=== PATIENT | female | born 1990 | race Caucasian/White ===

== ENCOUNTER 2016-07-14 13:55 | Emergency (ER) | payer MEDICAID ==
[~2016-07-14] VITALS: Ht 166.4 cm; Wt 78.0 kg
[~2016-07-14 13:55] MED LIST: CEFU250T PO; DOCU-143 PO; HYDR-707 PO; IBUP-1780 PO; IRON PO; METR500T PO; OMEP20CA6 PO; OSLT75C PO; OXYC-202 PO; PNV91TAB3 PO
[2016-07-14] MEDS ORDERED: KETOROLAC 60 MG/2 ML VIAL IM ONE (14:30)
--- NOTE | 2016-07-14 14:42 | ED Upper Extremity ---
General Chief Complaint: Upper Extremity Stated Complaint: RIGHT UPPER JOINT EXTREMITY PAIN Nursing Triage Note: to ER with friend with reports of right shoulder pain when she raises her arm above her head for the past year. Patient reports no acute changes. Nursing Sepsis Screen: No Definite Risk Source: patient Exam Limitations: no limitations History of Present Illness Time seen by provider: 14:38 Initial Comments This 25-year-old white female presents with a one-year history of intermittent right shoulder pain. Patient's pain is made worse with abduction. The patient denies remote or recent trauma to the area. Patient denies associated paresthesias or weakness of the right upper extremity. She denies other joint pain. Past medical history is essentially noncontributory. The patient states that she has tried Tylenol and ibuprofen without significant improvement. The patient's pain is sharp in nature, typically moderate in severity, and can occur at any time. The pain is exacerbated by movement particularly abduction. Allergies and Home Medications Allergies Coded Allergies: No Known Drug Allergies (Unverified , 12/18/08) Home Medications Docusate Sodium 100 Mg Capsule, 100 MG PO BID, #60 Prescribed by: DOMINGO CALDERON on 11/26/15 1559 Ibuprofen 800 Mg Tablet, 800 MG PO Q6H PRN for PAIN, #60 Prescribed by: DOMINGO CALDERON on 11/26/15 1559 Oxycodone HCl/Acetaminophen 1 Each Tablet, 1-2 TAB PO Q4H PRN for PAIN, #60 Prescribed by: DOMINGO CALDERON on 11/26/15 1559 Pnv95/Ferrous Fumarate/FA 1 Each Tablet, 1 EACH PO DAILY, (Reported) Constitutional: No chills, No fever EENTM: No eye pain Respiratory: No cough Cardiovascular: No chest pain Gastrointestinal: No abdominal pain, No diarrhea, No nausea, No vomiting Genitourinary: No decreased output, No dysuria, No frequency Musculoskeletal: see HPI, No back pain, No gout, joint pain (right shoulder), No joint swelling Skin: No change in color, No rash Psychiatric/Neurological: No Symptoms Reported Past Iwmnway-Ajvtti-Llodcb Hx Patient Social History Alcohol Use: Denies Use Recreational Drug Use: No (SMOKED POT YEAR AGO) Smoking Status: Former Smoker Type Used: Cigarettes 2nd Hand Smoke Exposure: Yes Recent Foreign Travel: No Contact w/Someone Who Travel: No Recent Infectious Disease Expo: No Recent Hopitalizations: No Immunizations Up To Date Tetanus Booster (TDap): Unknown PED Vaccines UTD: Yes Date of Influenza Vaccine: Nov 27, 2015 Seasonal Allergies Seasonal Allergies: Yes Surgeries HX Surgeries: Yes (HIATAL HERNIA REPAIR. EGD'S 2011) Surgeries: Abdominal Respiratory Hx Respiratory Disorders: No Cardiovascular Hx Cardiac Disorders: No Neurological Hx Neurological Disorders: No Reproductive System Hx Reproductive Disorders: No Sexually Transmitted Disease: No HIV/AIDS: No Female Reproductive Disorders: Denies Genitourinary Hx Genitourinary Disorders: Yes Genitourinary Disorders: UTI-Chronic Gastrointestinal Hx Gastrointestinal Disorders: Yes Gastrointestinal Disorders: Gastroesophageal Reflux, Hiatal Hernia Musculoskeletal Hx Musculoskeletal Disorders: No Endocrine Hx Endocrine Disorders: No HEENT HX ENT Disorders: No Loss of Vision: Denies Hearing Impairment: Denies Cancer Hx Cancer: No Psychosocial Hx Psychiatric Problems: Yes ( NO PSYCH ADMITS. ) Behavioral Health Disorders: Anxiety, PTSD, Depression Integumentary HX Skin/Integumentary Disorder: No Blood Transfusions Hx Blood Disorders: No Reviewed Nursing Assessment Reviewed/Agree w Nursing PMH: Yes Family Medical History Family Medial History: Alcoholism 19 FATHER PATERNAL GRANDFATHER Arthritis 19 MOTHER MATERNAL GRANDMOTHER MATERNAL GRANDFATHER Asthma G8 SISTER MATERNAL GRANDFATHER Cataracts 19 MOTHER Diabetes mellitus MATERNAL GRANDFATHER Drug abuse 19 FATHER Hypercholesterolemia 19 MOTHER Hypertension 19 MOTHER MATERNAL GRANDMOTHER Osteoporosis MATERNAL GRANDMOTHER Seizure disorder G8 SISTER Severe allergy Thyroid disease G8 SISTER Visual disorder MATERNAL GRANDMOTHER Physical Exam Vital Signs Vital Sign - Last 12Hours 07/14/16 14:06 Temp 98.2 Pulse 72 Resp 16 B/P (MAP) 122/68 Pulse Ox 100 O2 Delivery Room Air Capillary Refill : Less Than 3 Seconds General Appearance: WD/WN, no apparent distress HEENT: PERRL/EOMI, normal ENT inspection, TMs normal Neck: non-tender, full range of motion, supple Cardiovascular: normal peripheral pulses, regular rate, rhythm Respiratory: chest non-tender, lungs clear, normal breath sounds Gastrointestinal: normal bowel sounds, non tender, soft Back: normal inspection, no CVA tenderness Shoulder: normal inspection, no evidence of injury, pain, No swelling Elbow/Forearm: normal inspection, non-tender, no evidence of injury Wrist: Yes normal inspection, Yes non-tender, Yes no evidence of injury Hand: normal inspection, non-tender, no evidence of injury Neurologic/Tendon: normal sensation, normal motor functions, normal tendon functions 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, no motor/sensory deficits, alert, normal mood/affect, oriented x 3 Skin: normal color, warm/dry Progress/Results/Core Measures Results/Orders My Orders Orders - KRISHAN NY MD Ketorolac Injection (Toradol Injection) (07/14/16 14:30) Shoulder, Right, 3 Views (07/14/16 14:24) Medications Given in ED Current Medications Medications Dose Ordered Sig/Manuel Route Start Time Stop Time Status Last Admin Dose Admin Ketorolac Tromethamine 60 mg ONCE ONCE IM 07/14/16 14:30 07/14/16 14:31 DC 07/14/16 14:33 60 MG Vital Signs/I&O Vital Sign - Last 12Hours 07/14/16 07/14/16 14:06 14:33 Temp 98.2 98.2 Pulse 72 Resp 16 B/P (MAP) 122/68 Pulse Ox 100 O2 Delivery Room Air Blood Pressure Mean: 86 Progress Note : Time: 15:12 Progress Note X-ray of the right shoulder was unremarkable. I discussed findings with the patient. I recommended a follow-up with orthopedic surgery for further evaluation and imaging as appropriate. The patient's pain was improved with 60 mg of ketorolac IM. The patient was given a prescription for oral Toradol for discomfort over the weekend. Departure Impression Impression: Primary Impression: Shoulder pain, right Qualified Codes: M25.511 - Pain in right shoulder; G89.29 - Other chronic pain Disposition: 01 HOME, SELF-CARE Condition: Improved Departure-Patient Inst. Decision time for Depature: 15:18 Referrals: LORNA SWANSON DO (PCP) Primary Care Physician GHANSHYAM DÍAZ (Family) Primary Care Physician JOSE RUVALCABA MD Add. Discharge Instructions: Toradol for pain. Close follow-up with Dr. Castillo. Return if any problems. All discharge instructions reviewed with patient and/or family. Voiced understanding. KRISHAN NY MD July 14, 2016 14:42
--- NOTE | 2016-07-14 14:50 | Diagnostic Imaging Report ---
INDICATION: Right shoulder pain x 1 year. FINDINGS: Three views of the right shoulder show no fracture, dislocation, or other acute abnormalities. IMPRESSION: Negative right shoulder. Dictated by: Dictated on workstation # [id number]
[2016-07-14 15:22] VITALS: BP 122/68
== END 2016-07-14 15:22 | disposition home or self-care (01) ==
LOC: EDUNIT# 13:55 → ER 13:57
DX: M25.511 Pain in right shoulder (principal); G89.29 Other chronic pain; Z87.891 Personal history of nicotine dependence
CPT/HCPCS: 73030; 96372; 99282

== ENCOUNTER 2021-03-31 13:01 | Emergency (ER) | payer MEDICAID ==
[~2021-03-31] VITALS: Ht 164 cm; Wt 100.0 kg
[~2021-03-31 13:01] MED LIST changes: -OXYC-202 PO; +OXYC1TAB12 PO
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
[2021-03-31 13:52] LABS: BASOPHILS % (AUTO) 0 % (0-10); EOSINOPHILS % (AUTO) 0 % (0-10); HEMATOCRIT 40 % (35-52); HEMOGLOBIN 11.8 g/dL (11.5-16.0); LYMPHOCYTES # (AUTO) 1.6 10^3/uL (1.0-4.0); LYMPHOCYTES % (AUTO) 21 % (12-44); MEAN CORPUSCULAR HEMOGLOBIN 25 pg (25-34); MEAN CORPUSCULAR HGB CONC 30 g/dL (32-36); MEAN CORPUSCULAR VOLUME 84 fL (80-99); MEAN PLATELET VOLUME 11.6 fL (9.0-12.2); MONOCYTES # (AUTO) 0.4 10^3/uL (0.0-1.0); MONOCYTES % (AUTO) 5 % (0-12); NEUTROPHILS # (AUTO) 5.7 10^3/uL (1.8-7.8); NEUTROPHILS % (AUTO) 73 % (42-75); PLATELET COUNT 244 10^3/uL (130-400); WHITE BLOOD COUNT 7.8 10^3/uL (4.3-11.0)
[2021-03-31 14:05] LABS: CHLORIDE 105 MMOL/L (98-107); POTASSIUM 4.1 MMOL/L (3.6-5.0); SODIUM 138 MMOL/L (135-145)
[2021-03-31 14:06] LABS: PROTHROMBIN TIME PATIENT 13.7 SEC (12.2-14.7)
[2021-03-31 14:07] LABS: GLUCOSE 114 MG/DL (70-105); TOTAL PROTEIN 6.9 GM/DL (6.4-8.2)
[2021-03-31 14:08] LABS: CARBON DIOXIDE 22 MMOL/L (21-32)
[2021-03-31 14:09] LABS: BILIRUBIN,TOTAL 0.3 MG/DL (0.1-1.0)
[2021-03-31 14:11] LABS: ALKALINE PHOSPHATASE 74 U/L (40-136); CREATININE SERUM 0.79 MG/DL (0.60-1.30); GFR ESTIMATED 104
[2021-03-31 14:12] LABS: BUN/CREATININE RATIO 8
[2021-03-31 14:14] LABS: ALANINE AMINOTRANSFERASE 14 U/L (0-55); SALICYLATE < 5.0 MG/DL (5.0-20.0)
[2021-03-31 14:31] LABS: BILIRUBIN,URINE NEGATIVE (NEGATIVE); CLARITY,URINE CLEAR; COLOR,URINE YELLOW; GLUCOSE, URINE (UA) NEGATIVE (NEGATIVE); KETONES,URINE NEGATIVE (NEGATIVE); LEUKOCYTE ESTERASE ,URINE NEGATIVE (NEGATIVE); NITRITE,URINE NEGATIVE (NEGATIVE); PROTEIN,URINE NEGATIVE (NEGATIVE)
[2021-03-31 14:48] LABS: BACTERIA,URINE NEGATIVE /HPF; SQUAMOUS EPITHELIAL CELL,UR 0-2 /HPF
[2021-03-31 15:00] LABS: AMPHETAMINE SCREEN, URINE NEGATIVE (NEGATIVE); BARBITURATE SCREEN URINE NEGATIVE (NEGATIVE); BENZODIAZEPINES SCREEN URINE NEGATIVE (NEGATIVE); CANNABINOID SCREEN, URINE NEGATIVE (NEGATIVE); COCAINE SCREEN URINE NEGATIVE (NEGATIVE); METHADONE STAT NEGATIVE (NEGATIVE); METHAMPHETAMINE SCREEN URINE S NEGATIVE (NEGATIVE); OPIATE SCREEN URINE NEGATIVE (NEGATIVE); OXYCODONE STAT NEGATIVE (NEGATIVE); PROPOXYPHENE STAT NEGATIVE (NEGATIVE); TRICYCLIC ANTIDEPRESSANTS SCRE NEGATIVE (NEGATIVE)
[2021-03-31 20:30] VITALS: BP 135/90
== END 2021-03-31 20:34 | disposition home or self-care (01) ==
LOC: EDUNIT# 13:01 → ER 13:02
DX: F32.9 Major depressive disorder, single episode, unspecified (principal); T39.1X1A Poisoning by 4-Aminophenol derivatives, accidental (unintentional), initial encounter; F17.210 Nicotine dependence, cigarettes, uncomplicated
CPT/HCPCS: 80053; 80306; 81000; 84703; 85025; 85610; 93005; 99284; G0480 ×3; 36415; 80320; 80329

== ENCOUNTER → 2021-08-19 | Outpatient (CLI) | payer MEDICAID | LOC: CARD 14:30 | PROVIDERS: ATTEND Family Medicine | DX: I51.7 Cardiomegaly (principal) | CPT/HCPCS: 93306 ==

== ENCOUNTER → 2021-09-19 | Outpatient (CLI) | payer MEDICAID | LOC: CARD 12:30 | PROVIDERS: ATTEND Internal Medicine Cardiovascular Disease | DX: R00.2 Palpitations (principal) | CPT/HCPCS: 93225; 93226 ==

== ENCOUNTER 2022-07-03 00:57 | Emergency (ER) | payer MEDICAID ==
[~2022-07-03] VITALS: Ht 165 cm; Wt 93.0 kg
[2022-07-03 01:06] VITALS: BP 144/81
[2022-07-03] MEDS ORDERED: SERT-414 (01:13)
[2022-07-03] MEDS ORDERED: BUSP15TA60 (01:13)
[2022-07-03] MEDS ORDERED: RX-NAPROXEN (NAPROSYN) 250 MG TAB PPK#4 PO STA (01:32)
[2022-07-03] MEDS ORDERED: RX-AMOXICILLIN 500 MG CAP #3 PPK PO STA (01:32)
[2022-07-03] MEDS ORDERED: AMOX875T2 PO (01:34)
[2022-07-03] MEDS ORDERED: LIDO15SO6 MM (01:34)
[2022-07-03] MEDS ORDERED: NAPR500T8 PO (01:34)
--- NOTE | 2022-07-03 01:34 | ED EENT ---
History of Present Illness General Chief Complaint: Dental Problems/Pain Stated Complaint: ABSCESSED TOOTH Nursing Triage Note: right upper dental pain x1 week right sided facial pain. Source: patient History of Present Illness Date Seen by Provider: July 03, 2022 Time Seen by Provider: 01:25 Initial Comments PT ARRIVES VIA POV C/O DENTAL PAIN FOR 1 WEEK--RIGHT UPPER MOLAR AREA C/O PAIN TO RIGHT SIDE OF FACE NO SWELLING TO FACE NO FEVER HAS NOT SOUGHT CARE UNTIL TONIGHT SYMPTOMS NO DIFFERENT TONIGHT NO RELIEF WITH OTC ORAJEL. SHE DOES NOT HAVE A DENTIST PCP: [facility] Allergies and Home Medications Allergies Coded Allergies: No Known Drug Allergies (Unverified , 12/18/08) Patient Home Medication List Home Medication List Reviewed: Yes Amoxicillin (Amoxicillin) 875 Mg Tablet, 875 MG PO BID Prescribed by: PIA HAYES on 07/03/22133 Buspirone HCl (Buspirone HCl) 15 Mg Tablet, (Reported) Entered as Reported by: MICKI CAMARA on 07/03/22112 Last Action: New Order Lidocaine HCl (Lidocaine HCl Viscous) 2 % Solution, 1-2 ML MM [id number] Prescribed by: PIA HAYES on 07/03/22133 Naproxen (Naproxen) 500 Mg Tablet.dr, 500 MG PO BID Prescribed by: PIA HAYES on 07/03/22133 Sertraline HCl (Sertraline HCl) 100 Mg Tablet, (Reported) Entered as Reported by: MICKI CAMARA on 07/03/22112 Last Action: New Order Discontinued Medications Docusate Sodium (Colace) 100 Mg Capsule, 100 MG PO BID Discontinued Reason: No Longer Taking Prescribed by: DOMINGO CALDERON on 11/26/151558 Last Action: Discontinued Ibuprofen (Ibuprofen) 800 Mg Tablet, 800 MG PO Q6H PRN for PAIN Discontinued Reason: No Longer Taking Prescribed by: DOMINGO CALDERON on 11/26/151558 Last Action: Discontinued Oxycodone HCl/Acetaminophen (Percocet 10-325 mg Tablet) 1 Each Tablet, 1-2 TAB PO Q4H PRN for PAIN Discontinued Reason: No Longer Taking Prescribed by: DOMINGO CALDERON on 11/26/151558 Last Action: Discontinued Pnv95/Ferrous Fumarate/FA ( Caplet) 1 Each Tablet, 1 EACH PO DAILY, (Reported) Discontinued Reason: No Longer Taking Entered as Reported by: FELTON INGRAM on 05/25/15 0938 Last Action: Discontinued Review of Systems Review of Systems Constitutional: no symptoms reported Mouth: see HPI Respiratory: no symptoms reported Cardiovascular: no symptoms reported Gastrointestinal: no symptoms reported Musculoskeletal: no symptoms reported Skin: no symptoms reported Neurological: No Symptoms Reported Past Ikjnnik-Nmmzli-Txywmx Hx Patient Social History Tobacco Use?: Yes Tobacco type used: Cigarettes Smoking Status: Current Everyday Smoker Substance use?: No Alcohol Use?: Yes Alcohol Frequency: Once in a while Pt feels they are or have been: No Immunizations Up To Date Tetanus Booster (TDap): Unknown PED Vaccines UTD: Yes First/Initial COVID19 Vaccinat: x2 Second COVID19 Vaccination Logan: 2020 Seasonal Allergies Seasonal Allergies: Yes Past Medical History Surgery/Hospitalization HX: DEPRESSION, ANXIETY, PTSD Surgeries: Yes (HIATAL HERNIA REPAIR. EGD'S 2011) Abdominal Respiratory: No Cardiac: No Neurological: No : No Reproductive Disorders: No Female Reproductive Disorders: Denies Sexually Transmitted Disease: No HIV/AIDS: No Genitourinary: Yes UTI-Chronic Gastrointestinal: Yes Gastroesophageal Reflux, Hiatal Hernia Musculoskeletal: No Endocrine: No HEENT: Yes (DENTAL CARIES) Loss of Vision: Denies Hearing Impairment: Denies Cancer: No Psychosocial: Yes ( NO PSYCH ADMITS. SUICIDAL IDEATIONS) Anxiety, PTSD, Suicide Attempts, Depression Integumentary: No Blood Disorders: No Family Medical History Alcoholism 19 FATHER PATERNAL GRANDFATHER Arthritis 19 MOTHER MATERNAL GRANDMOTHER MATERNAL GRANDFATHER Asthma G8 SISTER MATERNAL GRANDFATHER Cataracts 19 MOTHER Diabetes mellitus MATERNAL GRANDFATHER Drug abuse 19 FATHER Hypercholesterolemia 19 MOTHER Hypertension 19 MOTHER MATERNAL GRANDMOTHER Osteoporosis MATERNAL GRANDMOTHER Seizure disorder G8 SISTER Severe allergy Thyroid disease G8 SISTER Visual disorder MATERNAL GRANDMOTHER Physical Exam Vital Signs Vital Signs - First Documented 07/03/22 01:06 Temp 37.1 Pulse 85 Resp 16 B/P (MAP) 144/81 (102) Pulse Ox 98 O2 Delivery Room Air Height, Weight, BMI Height: 5'5.50" Weight: 172lbs. 0.3oz. 78.244660xk; 34.00 BMI Method:Stated General Appearance: WD/WN, no apparent distress, other (CONSTANT MOVEMENTS, KEEPS HANDS OVER ENTIRE FACE, DOES NOT MAKE EYE CONTACT. REEKS OF CIGARETTES, FRESH "HICKEYS" ON NECK ) Eyes: bilateral eye normal inspection Mouth/Throat: other (RIGHT UPPER SECOND MOLAR DECAYED DOWN TO GUMS; SLIGHT SURROUNDING GUM INFLAMMATION. EXTENSIVE DENTAL CARIES TO OTHER TEETH WELL. NO FACIAL SWELLING OR ERYTHEMA. 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, no motor/sensory deficits, alert, oriented x 3 Skin: normal color, warm/dry, tattoos/piercings Progress/Results/Core Measures Results/Orders My Orders Orders - PIA HAYES DO Rx-Amoxicillin Capsule (Rx-Polymox Capsu (07/03/22 01:32) Rx-Naproxen (Rx-Naprosyn) (07/03/22 01:32) Lidocaine 2% Viscous 15 Ml (Xylocaine Vi (07/03/22 01:45) Medications Given in ED Current Medications Medications Dose Ordered Sig/Manuel Route Start Time Stop Time Status Last Admin Dose Admin Lidocaine HCl 5 ml ONCE ONCE MM 07/03/22 01:45 07/03/22 01:46 DC 07/03/22 01:46 5 ML Vital Signs/I&O 07/03/22 01:06 Temp 37.1 Pulse 85 Resp 16 B/P (MAP) 144/81 (102) Pulse Ox 98 O2 Delivery Room Air Blood Pressure Mean: 102 Progress Progress Note : Progress Note DISCUSSED ANTICIPATED COURSE, MEDICATIONS, NEED FOR FOLLOW UP WITH DENTIST, AND RETURN PRECAUTIONS Departure Impression Primary Impression: Dental caries Disposition: HOME, SELF-CARE Condition: Stable Departure-Patient Inst. Decision time for Depature: 01:33 Referrals: CASSANDRA RAMIREZ MD (PCP/Family) Primary Care Physician Patient Instructions: Tooth Decay, Adult (DC), Dental Pain (DC) Add. Discharge Instructions: FOLLOW UP WITH DENTIST SOON POSSIBLE--CALL THIS MORNING TO SCHEDULE AN APPOINTMENT All discharge instructions reviewed with patient and/or family. Voiced understanding. Scripts Lidocaine HCl (Lidocaine HCl Viscous) 2 % Solution 1-2 ML MM [id number], #120 ML Prov: PIA HAYES DO 07/03/22 Naproxen (Naproxen) 500 Mg Tablet.dr 500 MG PO BID, #20 TAB Prov: PIA HAYES DO 07/03/22 Amoxicillin (Amoxicillin) 875 Mg Tablet 875 MG PO BID, #20 TAB Prov: PIA HAYES DO 07/03/22 PIA HAYES DO July 03, 2022 01:34
[2022-07-03] MEDS ORDERED: LIDOCAINE 2% VISCOUS 15 ML UDC MM ONE (01:45)
== END 2022-07-03 01:46 | disposition home or self-care (01) ==
LOC: EDUNIT# 00:57 → ER 01:00
DX: K02.9 Dental caries, unspecified (principal); F17.210 Nicotine dependence, cigarettes, uncomplicated
CPT/HCPCS: 99283

== ENCOUNTER 2022-10-28 11:23 | Emergency (ER) | payer MEDICAID ==
[~2022-10-28 11:23] MED LIST changes: +AMOX875T2 PO; +BUSP15TA60; +LIDO15SO3 MM; +NAPR500T8 PO; +SERT-414
--- NOTE | 2022-10-28 11:47 | ED Lower Extremity ---
General Chief Complaint: Lower Extremity Stated Complaint: INJ LEFT FOOT AND THUMB Source: patient Exam Limitations: no limitations History of Present Illness Date Seen by Provider: Oct 28, 2022 Time Seen by Provider: 11:45 Initial Comments Patient is a 31-year-old female presents ED with left thumb and left dorsum foot pain. She injured her foot last Sunday. She fell down 3 stairs while going up. She states she hit her left dorsum foot and left thumb when she fell. Denies hitting her head or loss of conscious. She reports pain with movement of the left thumb and when she stands on the left foot. She reports crepitus and crunching of her left foot. Pain with movement of her left thumb. Denies any swelling or bruising. She has been taking anti-inflammatory. Pain is described as dull and achy and constant. She denies back pain, chest pain, shortness of breath, cough, Cheikh pain vomiting, diarrhea. Allergies and Home Medications Allergies Coded Allergies: No Known Drug Allergies (Unverified , 12/18/08) Patient Home Medication List Home Medication List Reviewed: Yes Amoxicillin (Amoxicillin) 875 Mg Tablet, 875 MG PO BID Prescribed by: PIA HAYES on 07/03/22133 Buspirone HCl (Buspirone HCl) 15 Mg Tablet, (Reported) Entered as Reported by: MICKI CAMARA on 07/03/22112 Lidocaine HCl (Lidocaine HCl Viscous) 2 % Solution, 1-2 ML MM [id number] Prescribed by: PIA HAYES on 07/03/22133 Naproxen (Naproxen) 500 Mg Tablet.dr, 500 MG PO BID Prescribed by: PIA HAYES on 07/03/22133 Naproxen (Naproxen) 500 Mg Tablet, 500 MG PO Q12H Prescribed by: LAVONNE CRANE on 10/28/22 1203 Sertraline HCl (Sertraline HCl) 100 Mg Tablet, (Reported) Entered as Reported by: MICKI CAMARA on 07/03/22112 Review of Systems Constitutional: No chills, No diaphoresis EENTM: No ear pain, No blurred vision, No double vision Respiratory: No cough, No dyspnea on exertion Cardiovascular: No chest pain Gastrointestinal: No abdominal pain, No diarrhea, No nausea, No vomiting Genitourinary: No decreased output, No discharge Musculoskeletal: No back pain; joint pain, muscle pain, muscle stiffness Skin: No change in color, No change in hair/nails All Other Systems Reviewed Negative Unless Noted: Yes Past Mdxkxxz-Gsvkrr-Fotmhu Hx Immunizations Up To Date Tetanus Booster (TDap): Unknown PED Vaccines UTD: Yes First/Initial COVID19 Vaccinat: x2 Second COVID19 Vaccination Logan: 2020 Seasonal Allergies Seasonal Allergies: Yes Past Medical History Surgery/Hospitalization HX: DEPRESSION, ANXIETY, PTSD Surgeries: Yes (HIATAL HERNIA REPAIR. EGD'S 2011) Abdominal Respiratory: No Cardiac: No Neurological: No Reproductive Disorders: No Female Reproductive Disorders: Denies Sexually Transmitted Disease: No HIV/AIDS: No Genitourinary: Yes UTI-Chronic Gastrointestinal: Yes Gastroesophageal Reflux, Hiatal Hernia Musculoskeletal: No Endocrine: No HEENT: Yes (DENTAL CARIES) Loss of Vision: Denies Hearing Impairment: Denies Cancer: No Psychosocial: Yes ( NO PSYCH ADMITS. SUICIDAL IDEATIONS) Anxiety, PTSD, Suicide Attempts, Depression Integumentary: No Blood Disorders: No Family Medical History Alcoholism 19 FATHER PATERNAL GRANDFATHER Arthritis 19 MOTHER MATERNAL GRANDMOTHER MATERNAL GRANDFATHER Asthma G8 SISTER MATERNAL GRANDFATHER Cataracts 19 MOTHER Diabetes mellitus MATERNAL GRANDFATHER Drug abuse 19 FATHER Hypercholesterolemia 19 MOTHER Hypertension 19 MOTHER MATERNAL GRANDMOTHER Osteoporosis MATERNAL GRANDMOTHER Seizure disorder G8 SISTER Severe allergy Thyroid disease G8 SISTER Visual disorder MATERNAL GRANDMOTHER Physical Exam Vital Signs Vital Signs - First Documented 10/28/22 11:40 Temp 37.0 Pulse 95 Resp 16 B/P (MAP) 136/82 (100) Pulse Ox 100 O2 Delivery Room Air Capillary Refill : Height, Weight, BMI Height: 5'5.50" Weight: 172lbs. 0.3oz. [id number]; 34.00 BMI Method:Stated General Appearance: WD/WN, no apparent distress HEENT: PERRL/EOMI, normal ENT inspection, TMs normal, pharynx normal Neck: non-tender, full range of motion Cardiovascular: regular rate, rhythm, no edema, no gallop, no JVD Respiratory: chest non-tender, lungs clear, normal breath sounds, no respiratory distress, no accessory muscle use Gastrointestinal: normal bowel sounds, non tender, soft, no organomegaly Back: normal inspection, no CVA tenderness Hips: bilateral hip non-tender, bilateral hip normal inspection, bilateral hip normal range of motion, bilateral hip no evidence of injury Knees: bilateral knee non-tender, bilateral knee normal inspection, bilateral knee normal range of motion Ankles: bilateral ankle non-tender, bilateral ankle normal inspection, bilateral ankle normal range of motion Feet: left foot pain, left foot soft tissue tenderness (Tenderness to palpate left dorsum foot. No crepitus. No swelling or bruising. 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 No laxity with valgus or varus stress. Normal active range of motion of left thumb. Neurovascular intact. No obvious bone deformity. Progress/Results/Core Measures Results/Orders My Orders Orders - ADOLPH REYES Hand, Left, 3 Views (10/28/22 11:44) Foot, Left, 3 Views (10/28/22 11:44) Vital Signs/I&O 10/28/22 10/28/22 11:40 12:23 Temp 37.0 37.0 Pulse 95 95 Resp 16 16 B/P (MAP) 136/82 (100) 136/82 Pulse Ox 100 100 O2 Delivery Room Air Room Air Departure Communication (PCP) Patient with left hand and left foot pain. Pain since a fall on Sunday. She has not been evaluated. Due to the continued pain and pain with movement x-ray was ordered of the left hand and foot. No obvious bone deformity or swelling or bruising. No crepitus or laxity noted. Neurovascular intact. X-ray was obtained which did not note any fracture of the left hand or left foot. Discussed these results with patient. Likely more sprain. Recommend anti- inflammatories, ice, Fredi wrap for support. If continued pain orthopedic follow- up in 7 to 10 days. Limited strenuous activities. Will discharge with naproxen. If any worsening symptoms return back to ED for further evaluation. Patient agrees with plan of action. Impression Primary Impression: Foot pain Additional Impression: Hand pain Disposition: 01 HOME, SELF-CARE Condition: Stable Departure-Patient Inst. Decision time for Depature: 12:03 Referrals: CASSANDRA RAMIREZ MD (PCP/Family) Primary Care Physician VLADIMIR NORMAN MD Patient Instructions: Foot Sprain ED Scripts Naproxen (Naproxen) 500 Mg Tablet 500 MG PO Q12H, #20 TAB Prov: ADOLPH REYES 10/28/22 Work/School Note: Work Release Form Date Seen in the Emergency Department: Oct 28, 2022 Return to Work: Oct 30, 2022 ADOLPH REYES Oct 28, 2022 11:47
[2022-10-28] MEDS ORDERED: NAPR-915 PO (12:03)
--- NOTE | 2022-10-28 12:10 | Diagnostic Imaging Report ---
EXAMINATION: Left hand radiographs, 3 views. COMPARISON: None. HISTORY: 31-year-old female, left hand and thumb pain. FINDINGS: There is no identified acute fracture. There is no subluxation or dislocation. No radiopaque foreign body. The joint spaces are well preserved. IMPRESSION: Unremarkable radiographs of the left hand. Dictated by: Dictated on workstation # [id number]
--- NOTE | 2022-10-28 12:11 | Diagnostic Imaging Report ---
. EXAMINATION: Left foot radiographs, 3 views. COMPARISON: None. HISTORY: 31-year-old female, left foot pain. FINDINGS: There is no identified acute fracture. There is no cortical or aggressive bone destruction. There is no radiopaque foreign body. Joint spaces are well preserved. IMPRESSION: Unremarkable radiographs of the left foot. Dictated by: Dictated on workstation # [id number]
[2022-10-28 12:23] VITALS: BP 136/82
== END 2022-10-28 12:23 | disposition home or self-care (01) ==
LOC: EDUNIT# 11:23 → ER 11:26
DX: M79.672 Pain in left foot (principal); M79.642 Pain in left hand; W10.9XXA Fall (on) (from) unspecified stairs and steps, initial encounter; W22.8XXA Striking against or struck by other objects, initial encounter; Y93.01 Activity, walking, marching and hiking
CPT/HCPCS: 73130; 73630